=== PATIENT | male | born 1965 | race Caucasian/White ===

== ENCOUNTER 2020-06-01 11:34 | Outpatient (REF) | payer MEDICAID, SELFPAY | END 2020-06-01 11:35 | disposition home or self-care (01) | LOC: HO.HAP 11:34 | PROVIDERS: Visit Provider Internal Medicine | DX: Z46.1 Encounter for fitting and adjustment of hearing aid (principal) | CPT/HCPCS: V5014 ==

== ENCOUNTER 2020-06-15 13:56 | Outpatient (REF) | payer MEDICAID, SELFPAY | END 2020-06-15 13:57 | disposition home or self-care (01) | LOC: HO.HAP 13:56 | PROVIDERS: Visit Provider Internal Medicine | DX: Z46.1 Encounter for fitting and adjustment of hearing aid (principal); H90.3 Sensorineural hearing loss, bilateral | CPT/HCPCS: V5011; V5020; V5221; V5240; V5266 ==

== ENCOUNTER 2020-06-22 11:24 | Outpatient (REF) | payer MEDICAID, SELFPAY | END 2020-06-22 11:25 | disposition home or self-care (01) | LOC: HO.HAP 11:24 | PROVIDERS: PCP Internal Medicine; Referring Provider Internal Medicine; Visit Provider Internal Medicine | DX: Z46.1 Encounter for fitting and adjustment of hearing aid (principal) | CPT/HCPCS: V5275 ==

== ENCOUNTER 2020-07-05 15:23 | Outpatient (REF) | payer MEDICAID, SELFPAY | END 2020-07-05 15:24 | disposition home or self-care (01) | LOC: HO.HAP 15:23 | PROVIDERS: PCP Internal Medicine; Visit Provider Internal Medicine | DX: Z46.1 Encounter for fitting and adjustment of hearing aid (principal) | CPT/HCPCS: 92700; V5264 ==

== ENCOUNTER 2020-12-28 15:40 | Outpatient (REF) | payer OTHER, SELFPAY | END 2020-12-28 15:41 | disposition home or self-care (01) | LOC: HO.HAP 15:40 | PROVIDERS: Visit Provider Internal Medicine | DX: Z13.89 Encounter for screening for other disorder (principal) ==

== ENCOUNTER 2021-01-10 08:10 | Outpatient (REF) | payer SELFPAY ==
--- NOTE | 2021-01-10 08:43 | MHC.AU.HFU ---
Hearing Instrument Follow-Up- Binaural Date of Visit: 01/10/21 Right Ear: Dry Talc Racker: Octavio Model: Kevin 1600 JAYLON 312 Serial Number: [id number] Repair Warranty: 09/05/2023 Battery Size: 312 Color: Bronze Tube Winder Hand: Absolute Power Tube Winder Hand/Integrated earmold SN: [id number] Warranty: 07/28/2022 Type of Wax Guard: HearClear Dispensed By: [facility] Date of Fittin06/15/20 Left Ear: Dry Talc Racker: Octavio Model: CROS JAYLON 312 Serial Number: [id number] Repair Warranty: 09/05/2023 Battery Size: 312 Color: Bronze Tube Winder Hand: Size 2 60 gain Type of Dome: 8mm open (Oticon dome) Type of Wax Guard: Hear Clear Dispensed By: [facility] Date of Fittin06/15/20 Follow-Up Summary: Patient arrived to tow picker his repaired Kevin/CROS instruments. He returned the demo instruments and demo boiler blower in good condition. The absolute power custom gear nicker was placed back on his Kevin. Patient reports the instruments sound good. Recommendations: Hearing instrument follow-up or maintenance as needed. Please contact our clinic with any questions or concerns. Patient also purchased one pack of wax guards and a package of 10 domes. Diagnosis Code(s): Primary Diagnosis: H90.3 Bilateral Sensorineural Hearing Loss Signature: Provider: Fiona Pelaez, [facility]
== END 2021-01-10 08:11 | disposition home or self-care (01) ==
LOC: HO.HAP 08:10
PROVIDERS: Visit Provider Internal Medicine
DX: H90.3 Sensorineural hearing loss, bilateral (principal); Z46.1 Encounter for fitting and adjustment of hearing aid
CPT/HCPCS: V5267

== ENCOUNTER 2021-01-31 08:25 | Outpatient (REF) | payer SELFPAY | END 2021-01-31 08:26 | disposition home or self-care (01) | LOC: HO.HAP 08:25 | PROVIDERS: Visit Provider Internal Medicine | DX: Z13.89 Encounter for screening for other disorder (principal) ==

== ENCOUNTER 2021-02-06 11:47 | Outpatient (REF) | payer SELFPAY | END 2021-02-06 11:48 | disposition home or self-care (01) | LOC: HO.HAP 11:47 | PROVIDERS: Visit Provider Internal Medicine | DX: Z13.89 Encounter for screening for other disorder (principal) ==

== ENCOUNTER 2021-02-22 11:16 | Outpatient (REF) | payer SELFPAY | END 2021-02-22 11:17 | disposition home or self-care (01) | LOC: HO.HAP 11:16 | PROVIDERS: Visit Provider Internal Medicine | DX: Z13.89 Encounter for screening for other disorder (principal) ==

== ENCOUNTER 2021-05-29 16:15 | Outpatient (REF) | payer SELFPAY | END 2021-05-29 16:16 | disposition home or self-care (01) | LOC: HO.HAP 16:15 | PROVIDERS: Visit Provider Internal Medicine | DX: Z46.1 Encounter for fitting and adjustment of hearing aid (principal); H90.3 Sensorineural hearing loss, bilateral | CPT/HCPCS: V5267 ==

== ENCOUNTER 2021-10-17 13:31 | Outpatient (REF) | payer SELFPAY | END 2021-10-17 13:32 | disposition home or self-care (01) | LOC: HO.HAP 13:31 | PROVIDERS: Visit Provider Internal Medicine | DX: Z46.1 Encounter for fitting and adjustment of hearing aid (principal); H90.3 Sensorineural hearing loss, bilateral | CPT/HCPCS: V5267 ==

== ENCOUNTER 2022-04-30 16:15 | Outpatient (REF) | payer SELFPAY | END 2022-04-30 16:16 | disposition home or self-care (01) | LOC: HO.HAP 16:15 | PROVIDERS: Visit Provider Internal Medicine | DX: Z46.1 Encounter for fitting and adjustment of hearing aid (principal); H90.3 Sensorineural hearing loss, bilateral | CPT/HCPCS: V5267 ==

== ENCOUNTER 2023-01-03 13:54 | Outpatient (REF) | payer OTHER, SELFPAY | END 2023-01-03 13:55 | disposition home or self-care (01) | LOC: HO.SH 13:54 | PROVIDERS: Visit Provider Internal Medicine | DX: Z01.118 Encounter for examination of ears and hearing with other abnormal findings (principal); H90.3 Sensorineural hearing loss, bilateral; H69.93 Unspecified Eustachian tube disorder, bilateral | CPT/HCPCS: 92557; 92567 ==

== ENCOUNTER 2023-01-03 15:17 | Outpatient (REF) | payer OTHER, SELFPAY | END 2023-01-03 15:18 | disposition home or self-care (01) | LOC: HO.HAP 15:17 | PROVIDERS: Visit Provider Internal Medicine | DX: Z46.1 Encounter for fitting and adjustment of hearing aid (principal) | CPT/HCPCS: V5020; V5267 ==

== ENCOUNTER 2023-10-29 09:56 | Outpatient (REF) | payer SELFPAY | END 2023-10-29 09:57 | disposition home or self-care (01) | LOC: HO.HAP 09:56 | PROVIDERS: Visit Provider Internal Medicine | DX: Z46.1 Encounter for fitting and adjustment of hearing aid (principal); H90.6 Mixed conductive and sensorineural hearing loss, bilateral | CPT/HCPCS: 92593 ==

== ENCOUNTER 2023-11-06 11:32 | Outpatient (REF) | payer SELFPAY | END 2023-11-06 11:33 | disposition home or self-care (01) | LOC: HO.HAP 11:32 | PROVIDERS: Visit Provider Internal Medicine | DX: Z13.89 Encounter for screening for other disorder (principal) ==

== ENCOUNTER 2024-04-09 09:04 | Outpatient (REF) | payer SELFPAY ==
--- NOTE | 2024-04-09 13:22 | MHC.AU.HA3 ---
Hearing Instrument Follow-Up- Binaural Date of Visit: 04/09/24 Right Ear: Make, Model, Color, Serial Number: Octavio Catalan JAYLON SN: [id number] Color: Bronze Post Partum Nurse Repair Warranty: 09/05/2023 Post Partum Nurse Loss and Damage Warranty: 09/05/2023 Battery Size: 312 Gum Remover/Slim Tube: Absolute Power Gum Remover/Integrated earmold SN: [id number] Warranty: 07/28/2022 Type of Wax Guard: HearClear Dispensed By: [facility] Date of Fittin06/15/2020 Left Ear: Make, Model, Color, Serial Number: Octavio OSBORNE JAYLON SN: [id number] Color: Bronze Post Partum Nurse Repair Warranty: 09/05/2023 Post Partum Nurse Loss and Damage Warranty: 09/05/2023 Battery Size: 312 Gum Remover/Slim Tube: 2/60 CROS Earmold/Dome/CShell/SlimTip: Oticon 8mm Open Dome Type of Wax Guard: Hear Clear Dispensed By: [facility] Date of Fittin06/15/2020 Follow-Up Summary: Right hearing aid, flight attendant, and ear mold eaten by dog and damaged. Discussed options of repairing vs replacing (no longer has Medicaid insurance). Quoted $515.00 for hearing aid repair plus new ear mold. Edson opted to repair current hearing aid for now. Left CROS device and case in Repair Drawer until right hearing aid returns. Programmed loaner, Phonak Audeo P-13T Trial with 2P flight attendant and medium power dome (no CROS device). Ran feedback analyzer. Sent right hearing aid and ear mold to Octavio. Will need to ensure hearing aid is reconnected to CROS upon arrival. Then Edson can picker tender helper both devices and return loaner (no appointment needed). $515.00 due at picker tender helper. Recommendations: Patient will be contacted when materials have arrived. Diagnosis Code(s): Primary Diagnosis: H90.6 Mixed Hearing Loss, Bilateral Signature: Provider: Caity Sousa, [facility]
== END 2024-04-09 09:05 | disposition home or self-care (01) ==
LOC: HO.HAP 09:04
PROVIDERS: Visit Provider Internal Medicine
DX: Z13.89 Encounter for screening for other disorder (principal)

== ENCOUNTER 2024-05-07 10:57 | Outpatient (REF) | payer SELFPAY ==
--- NOTE | 2024-05-07 12:21 | MHC.AU.HA3 ---
Hearing Instrument Follow-Up- Binaural Date of Visit: 05/07/24 Right Ear: Alfred, Model, Color, Serial Number: Octavio Brown 1600 JAYLON SN: [id number] Color: Bronze Steam Service Inspector Repair Warranty: 10/28/2024 Steam Service Inspector Loss and Damage Warranty: 09/05/2023 [facility] Service Plan: None Battery Size: 312 Health And Safety Director/Slim Tube: Absolute Power Health And Safety Director/Integrated earmold SN: [id number] Warranty: 07/28/2022 Earmold/Dome/CShell/SlimTip: Type of Wax Guard: HearClear Dispensed By: [facility] Date of Fittin06/15/2020 Left Ear: Alfred, Model, Color, Serial Number: Octavio OSBORNE [facility] SN: [id number] Color: Bronze Steam Service Inspector Repair Warranty: 09/05/2023 Steam Service Inspector Loss and Damage Warranty: 09/05/2023 [facility] Service Plan: NONE Battery Size: 312 Health And Safety Director/Slim Tube: 2/60 CROS Earmold/Dome/CShell/SlimTip: Oticon 8mm Open Dome Type of Wax Guard: Hear Clear Dispensed By: [facility] Date of Fittin06/15/2020 Follow-Up Summary: Edson is here to warp picker repaired aid and new earmold. Returned loaner. Checked connection with phone. Provider could hear some feedback. Ran feedback assistant branch operations manager. Good subjective comfort and benefit reported. Recommendations: Recommendations: Hearing instrument follow-up or maintenance as needed. Diagnosis Code(s): Primary Diagnosis: H90.3 Bilateral Sensorineural Hearing Loss Signature: Provider: Caity Simpson, [facility]
== END 2024-05-07 10:58 | disposition home or self-care (01) ==
LOC: HO.HAP 10:57
PROVIDERS: Visit Provider Internal Medicine
DX: Z46.1 Encounter for fitting and adjustment of hearing aid (principal); H90.3 Sensorineural hearing loss, bilateral
CPT/HCPCS: 92700; V5014; V5264; V5266

== ENCOUNTER 2024-08-02 13:59 | Outpatient (REF) | payer SELFPAY ==
--- NOTE | 2024-08-02 16:06 | MHC.AU.HA3 ---
Hearing Instrument Follow-Up- Binaural Date of Visit: 08/02/24 Right Ear: Alfred, Model, Color, Serial Number: Octavio Brown 1600 JAYLON SN: [id number] Color: Bronze Cullet Trucker Repair Warranty: 10/28/2024 Cullet Trucker Loss and Damage Warranty: 09/05/2023 [facility] Service Plan: None Battery Size: 312 Electric Motor Control Assembler/Slim Tube: Absolute Power Electric Motor Control Assembler/Integrated earmold SN: [id number] Warranty: 07/28/2022 Earmold/Dome/CShell/SlimTip: Type of Wax Guard: HearClear Dispensed By: [facility] Date of Fittin06/15/2020 Left Ear: Alfred, Model, Color, Serial Number: Octavio OSBORNE JAYLON SN: [id number] Color: Bronze Cullet Trucker Repair Warranty: 09/05/2023 Cullet Trucker Loss and Damage Warranty: 09/05/2023 [facility] Service Plan: NONE Battery Size: 312 Electric Motor Control Assembler/Slim Tube: 2/60 CROS Earmold/Dome/CShell/SlimTip: Oticon 8mm Open Dome Type of Wax Guard: Hear Clear Dispensed By: [facility] Date of Fittin06/15/2020 Follow-Up Summary: Edson reports he has had problems with feedback since picking up the repaired hearing aid in April, he just hasn't been able to get in to deal with it. He reports trouble with feedback particularly when wearing his hardhat. Uses VC to turn aid down and this helps. Cleaned and checked aid and CROS, listening check positive. Ran feedback manager automotive. Further decreased gain for high pitches. Was not having a problem in office when simulating hard hat position with his hands. Will try and return if problem persists. Did not charge for today as this issue is ongoing since recent ESQUEDA repair. Recommendations: Recommendations: Hearing instrument follow-up or maintenance as needed. Patient will call if problems persist. Diagnosis Code(s): Primary Diagnosis: H90.6 Mixed Hearing Loss, Bilateral Signature: Provider: Caity Simpson, [facility]
== END 2024-08-02 14:00 | disposition home or self-care (01) ==
LOC: HO.HAP 13:59
PROVIDERS: Visit Provider Internal Medicine
DX: Z13.89 Encounter for screening for other disorder (principal)

== ENCOUNTER 2024-09-28 08:01 | Outpatient (REF) | payer SELFPAY ==
--- OUTSIDE RECORDS SUMMARY | 2024-09-28 08:04 | XMS_ITS | Data Portability ---
Author Organization [facility], , [facility] Address [address] [place] [address] Assessment No assessment recorded. Plan of Treatment Reminders Order Date Submit Date Provider Last Modified By Organization Details Last Modified Time Details Appointments None record ed. Lab None record ed. Referral None record ed. Procedures None record ed. Surgeries None record ed. Imaging None record ed. Medication Orders None record ed. Patient TargetsNo targets recorded. Patient InstructionsNo instructions recorded. Reason for Referral None Reported. Procedures Surgical History Date Name Laterality Status Provider Name and Address Organization Details Recorded Time 5 Jennifer - Colonoscopy completed Rogelio Rodriguez MD [address] [place] [address], [id number], [facility] 06/07/2015 09:15:28 Imaging Results None recorded. Procedure Notes None recorded. Medical Equipment None Reported. Medications Name Sig Start Date Stop Date Status Note LastModified by Organization Details LastModified Time ketoconazole 2 % crea active Not Available Not Available Not Available ciprofloxacin hcl 500 mg tabs active Not Available Not Available Not Available prochlorperazi ne maleate 10 mg tabs active Not Available Not Available Not Available metronidazole 500 mg tabs active Not Available Not Available Not Available fluconazole 150 mg tabs active Not Available Not Available Not Available lovastatin 20 mg tabs active Not Available Not Available Not Available azithromycin 250 mg tabs active Not Available Not Available Not Available lisinopril 10 mg tabs active Not Available Not Available Not Available azithromycin 250 mg tablet take 2 tablets by mouth on day 1 then 1 tablet on days 2 through 5 active Not Available Not Available No t Available fluconazole 150 mg tablet take 1 tablet by mouth TODAY--RE PEAT 1 TAB IN 1 WEEK IF NEEDED active Not Available Not Available No t Available metronidazole 500 mg tablet take 1 tablet by mouth three times a day active Not Available Not Available No t Available prochlorperazi ne maleate 10 mg tablet TAKE 1 TABLET BY MOUTH EVERY 6 HOURS NEEDED active Not Available Not Available No t Available ciprofloxacin 500 mg tablet TAKE 1 TABLET BY MOUTH TWICE DAILY active Not Available Not Available No t Available ketoconazole 2 % topical cream apply to affected area DAILY FOR 2 WEEKS DIRETED active Not Available Not Available No t Available Vitals None Recorded Social History None recorded. Functional Status None recorded. Mental Status None recorded. Family History Nothing Reported. Medical History No medical history recorded. Past Encounters Encounter ID Performer Location Encounter Start Date Encounter Closed Date Diagnosis/Indication Diagnosis SNOMED-CT Code Diagnosis ICD10 Code Diagnosis Note [id number] [facility], [address] [address] 06/07/2015 08:17:52 06/07/2015 12:28:40 Health Concerns Section Related Observation LastModified by Organization Detai ls LastModified Time None Recorded Concern Status LastModified by Organization Details LastModified Time None Recorded Advance Directives Directive None Recorded Payers Encounter Date Sequence Insurance Name Policy Number Policy Perdomo Covered Member ID Perdomo Member ID Guarantor Name 06/07/2015 1 [facility] [id number] Edson Bailey [id number] Edson Bailey
--- OUTSIDE RECORDS SUMMARY | 2024-09-28 08:05 | XMS_ITS | Data Portability ---
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) MDM MODERATE MUST MEET 2 OUT OF 3 ELEMENTS: PROBLEMS, DATA OR RISK ELEMENT 1: PROBLEMS ADDRESSED 1 OR MORE CHRONIC ILLNESS WITH EXACERBATION OR 2 OR MORE STABLE CHRONIC ILLNESSES OR 1 UNDIAGNOSED NEW PROBLEM OR 1 ACUTE ILLNESS W/SYMPTOMS OR 1 ACUTE COMPLICATED INJURY ELEMENT 2: DATA MUST MEET 1 OF 3 CATEGORIES CATEGORY 1: REVIEW OF PRIOR EXTERNAL NOTES, REVIEW OF RESULTS, ORDERING OF EACH TEST, ASSESSMENT REQUIRING INDEPENDENT HISTORIAN OR CATEGORY 2: INDEPENDENT INTERPRETATION OF TESTS BY ANOTHER PHYSICIAN OR SPECIALIST OR CATEGORY 3: DISCUSSION OF MGT OR TEST INTERPRETATION W/EXTERNAL PHYSICIAN OR SPECIALIST ELEMENT 3: RISK RISK OF COMPLICATIONS AND/OR MORBIDITY OR MORTALITY OF PATIENT MANAGEMENT PROVIDER MUST THOROUGHLY DOCUMENT EACH ELEMENT THAT IS COVERED Not available 01/08/2021 15:46:22 12/25/2021 12/25/2021 [id number] [place] [id number] (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) MDM MODERATE MUST MEET 2 OUT OF 3 ELEMENTS: PROBLEMS, DATA OR RISK ELEMENT 1: PROBLEMS ADDRESSED 1 OR MORE CHRONIC ILLNESS WITH EXACERBATION OR 2 OR MORE STABLE CHRONIC ILLNESSES OR 1 UNDIAGNOSED NEW PROBLEM OR 1 ACUTE ILLNESS W/SYMPTOMS OR 1 ACUTE COMPLICATED INJURY ELEMENT 2: DATA MUST MEET 1 OF 3 CATEGORIES CATEGORY 1: REVIEW OF PRIOR EXTERNAL NOTES, REVIEW OF RESULTS, ORDERING OF EACH TEST, ASSESSMENT REQUIRING INDEPENDENT HISTORIAN OR CATEGORY 2: INDEPENDENT INTERPRETATION OF TESTS BY ANOTHER PHYSICIAN OR SPECIALIST OR CATEGORY 3: DISCUSSION OF MGT OR TEST INTERPRETATION W/EXTERNAL PHYSICIAN OR SPECIALIST ELEMENT 3: RISK RISK OF COMPLICATIONS AND/OR MORBIDITY OR MORTALITY OF PATIENT MANAGEMENT PROVIDER MUST THOROUGHLY DOCUMENT EACH ELEMENT THAT IS COVERED Not available 12/25/2021 16:10:17 Plan of Treatment Reminders Order Date Submit Date Provider Last Modified By Organization Details Last Modified Time Details Appointments None recorded. Lab None recorded. Referral general surgeon referral 2021 [email or web address] Tami Lewis MD, [address], [place], [address], 09:31:17 Procedures None recorded. Surgeries None recorded. Imaging None recorded. Medication Orders lisinopril 20 mg tablet 2020 [id number], [address], [place], [id number], 15:51:55 atorvastati n 40 mg tablet 2020 [facility] #[id number], [address], [place], [id number], 15:51:56 amoxicillin 875 mg-potassiu m clavulanate 125 mg tablet 2021 022 [facility], [address] [place] [address], [address], 3 12:09:05 lisinopril 20 mg tablet 2021 022 [facility], [address] [place] [address], [address], 3 11:04:53 atorvastati n 40 mg tablet 2021 022 [facility], [address] [place] [address], [address], 2 11:19:47 cyclobenzap rine 10 mg tablet 2022 024 [facility], [address] [place] [address], [address], 4 10:13:42 phentermine 15 mg capsule 2022 023 [facility], [address] [place] [address], [address], 4 08:40:01 nabumetone 500 mg tablet 2023 024 LOW [facility], [address] [place] [address], [address], 4 11:03:53 Patient TargetsNo targets recorded. Patient Instructions Encounter Date Encounter Id Patient Instructions Last Modified By Organization Details Last Modified Time 01/08/2021 [id number] Home Sleep Apnea Testing* [email or web address] Not available 01/30/2021 14:47:48 shoulder pain: care instructions Not available 01/08/2021 15:49:46 03/12/2024 [id number] sciatica: exercises [email or web address] Not available 03/12/2024 10:28:11 low back pain: exercises [email or web address] Not available 03/12/2024 10:28:50 Reason for Referral General Surgeon Referral for Umbilical hernia worsening periumbilical pain Referring Physician: Anrold Savage, Internal Medicine, Encounter Date: 12/25/2021 Results Created Date Observation Date Name Description Value Unit Range Abnormal Flag Note LastModifiedBy Organization Detail LastModifiedTime 05/30/2005/20/2021 Home Sleep Apnea Testi ng* No observ ation record ed. [email or web address] [address], [address], 12/25/2021 16:02:59 Result Notes None recorded. Problems Name Problem SNOMED Code Status Onset Date Resolution Date Notes Provider Name and Address Organization Details Recorded Time Essential hypertens ion 20862380 Active 2017 Not Available [facility] 12:48:32 Hyperchol esterolem ia 49672483 Active 2017 Not Available [facility] 12:48:32 Sleep apnea 44358452 Active 2018 Not Available [facility] 12:48:32 Umbilical hernia 535984369 Active 2021 Arnold Savage, DO [address] [place], [address], [facility] 2 16:10:02 Acute otitis media 7836594 Active 2021 WILLY RINALDI [address] [place], [address], [facility] 2 11:07:39 Bilateral hip joint pain 996888700949 89819 Active 2022 WILLY RINALDI [address] [place], [address], [facility] 3 10:48:26 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 WILLY RINALDI [address] [place] [address], [address], [facility] 3 12:08:31 Strain of flexor muscle of right hip 960098059537 09192 Active 2022 Arnold Savage DO [address] [place] [address], [address], [facility] 3 16:48:25 Neck pain 35938929 Active 2022 WILLY RINALDI [address] [place] [address], [address], [facility] 3 08:24:42 Acute bronchiti s 29272981 Active 2023 WILLY RINALDI [address] [place] [address], [address], [facility] 4 10:30:00 Pain of left shoulder joint 889689628502 39396 Active 2023 WILLY RINALDI [address] [place] [address], [address], [facility] 4 10:24:40 Strain of left trapezius muscle 101226185961 15482 Active 2023 WILLY RINALDI [address] [place] [address], [address], [facility] 4 10:25:31 Lumbago with sciatica 354147933 Active 2023 WILLY RINALDI [address] [place], [address], [facility] 4 10:27:28 Problem Notes None recorded. Procedures Surgical History Date Name Laterality Status Provider Name and Address Organization Details Recorded Time 08/25/19 procedure on ear completed Desiree Haro NP, [address] [place] [address], [address], [facility] 10/13/2018 14:22:06 08/25/19 00 procedure on elbow completed Desiree Haro NP, [address] [place] [address], [address], [facility] 10/13/2018 14:20:56 08/25/18 91 Knee Surgery completed Desiree Haro NP, [address] [place] [address], [address], [facility] 10/13/2018 14:20:11 Imaging Results Imaging Date Name Status LastModified by Organiz ation Details LastModified Time 05/20/2021 Home Sleep Apnea Testing* completed [email or web address] [facility] [address], [address], 12/25/2021 16:02:59 Procedure Notes None recorded. Medical Equipment None Reported. Allergies Allergen ID Allergen Name Allergen Category Reaction Reaction Severity Criticality Documentation Date Start Date Code Code System Note Provider Name and Address Organization Details Recorded Time 2244 Toradol medicatio n dizziness Not available Not available 05/01/2018 75492 [facility] 8 09:23:22 Medications Name Sig Start Date Stop Date Status Note LastModified by Organization Details LastModified Time cyclobenzapr ine 10 mg tablet Take 1 tablet 3 times a day by oral route as needed for 7 days. active Not Available Not Available No t Available atorvastatin 40 mg tablet TAKE ONE TABLET BY MOUTH ONCE DAILY needs appt for further refills. call office 2023 active Not Available Not Available Not Avai lable prednisone 10 mg tablet 40 mg x 2 days30 mg x 2 days20 mg x 2 days10 mg x 2 days 03/12 completed Not Available Not Available Not Available meloxicam 15 mg tablet Take 1 tablet every day by oral route with meals for 30 days. 07/27 completed Not Available Not Available Not Available lisinopril 20 mg tablet TAKE ONE TABLET BY MOUTH ONCE DAILY needs appt for further refills. call office 2023 active Not Available Not Available Not Avai lable phentermine 15 mg capsule TAKE ONE CAPSULE BY MOUTH ONCE DAILY 2024 active Not Available Not Available Not Avai lable tramadol 50 mg tablet 10/14 completed Not Available Not Available Not Available amoxicillin 875 mg tablet Take 1 tablet every 12 hours by oral route for 7 days. 03/12 completed Not Available Not Available Not Available baclofen 10 mg tablet 07/30 completed Not Available Not Available Not Available lisinopril 40 mg tablet TK 1 T PO QD 12/19 completed Not Available Not Available Not Available amoxicillin 875 mg-potassium clavulanate 125 mg tablet Take 1 tablet every 12 hours by oral route for 7 days. 07/27 completed Not Available Not Available Not Available nabumetone 500 mg tablet TAKE ONE TABLET BY MOUTH TWO TIMES A DAY NEEDED active Not Available Not Available No t Available oxycodone 5 mg tablet 07/27 completed Not Available Not Available Not Available Vitals Date Recorded Body height Body mass index (BMI) Body weight Heart rate Oxygen saturation Oxygen saturation in Arterial blood by Pulse oximetry Systolic blood pressure Diastolic blood pressure Provider Name and Address Organization Details Last Updated DateTime 1 177.8 cm 33.7 kg/m2 657584. 21 g 64 /min 97 % 97 % 130 mm[Hg] 80 mm[Hg] [facility] 1 15:30:28 Date Recorded Body height Body mass index (BMI) Body weight Heart rate Oxygen saturation Oxygen saturation in Arterial blood by Pulse oximetry Systolic blood pressure Diastolic blood pressure Provider Name and Address Organization Details Last Updated DateTime 2 177.8 cm 33.7 kg/m2 074148. 21 g 78 /min 98 % 98 % 132 mm[Hg] 84 mm[Hg] Arnold Savage, DO [address] [place], [address], [facility] 2 15:54:41 Date Recorded Body height Oxygen saturation Oxygen saturation in Arterial blood by Pulse oximetry Heart rate Systolic blood pressure Diastolic blood pressure Provider Name and Address Organization Details Last Updated DateTime 2 177.8 cm 100 % 100 % 65 /min 170 mm[Hg] 72 mm[Hg] Nahomi Hussein [facility] 2 10:59:34 Date Recorded Body weight Heart rate Oxygen saturation Oxygen saturation in Arterial blood by Pulse oximetry Systolic blood pressure Diastolic blood pressure Provider Name and Address Organization Details Last Updated DateTime 3 831002. 43 g 78 /min 98 % 98 % 155 mm[Hg] 83 mm[Hg] Julia Montgomery [facility] 3 09:06:46 Date Recorded Body height Body mass index (BMI) Body weight Heart rate Oxygen saturation Oxygen saturation in Arterial blood by Pulse oximetry Systolic blood pressure Diastolic blood pressure Provider Name and Address Organization Details Last Updated DateTime 4 177.8 cm 31.3 kg/m2 27098.1 4 g 66 /min 98 % 98 % 136 mm[Hg] 82 mm[Hg] Evelio Andrade [facility] 4 10:14:40 Social History Question Answer Notes LastModified by Organizat ion Details LastModified Time Tobacco Smoking Status Never Smoker Janie oh [facility] 05/01/2018 11:05:49 What Was The Date Of Your Most Recent Tobacco Screening? 03/12/2024 [email or web address] Information not available 03/12/2024 Sex: Unknown Functional Status None recorded. Mental Status None recorded. Family History Relationship Description Onset Age of this Age Resolved Age Notes LastModified by Organization Details LastModified Time Father Sleep apnea [email or web address] Not availa ble 10/13/2018 14:23:14 Medical History No medical history recorded. Immunizations Vaccine Type Date Status Note Provider Nam e and Address Organization Details Recorded Time Influenza, split virus, quadrivalent, preservative 1 completed Janie oh [place] [facility] 05/25/2021 08:21:12 COVID-19, mRNA, LNP-S, PF, 100 mcg/0.5mL dose or 50 mcg/0.25mL dose 1 completed Arnold Savage DO [address] [place] [address], [address], [facility] 08/11/2021 14:04:41 Influenza, split virus, quadrivalent, preservative 9 completed Janie oh [facility] 10/13/2018 16:13:39 SARS-COV-2 (COVID-19) vaccine, UNSPECIFIED 1 completed Janie oh [facility] 01/02/2021 14:40:30 Past Encounters Encounter ID Performer Location Encounter Start Date Encounter Closed Date Diagnosis/Indication Diagnosis SNOMED-CT Code Diagnosis ICD10 Code Diagnosis Note [id number] Desiree Haro NP, [facility] [address] [place] [address], [place] [address] 05/01/2018 10:58:44 05/01/2018 14:36:39 Dizziness 066819462 R42 On examina tion - pupils unequal 567407533 H57.02 [id number] Desiree Haro NP, [address],[place] [address] 05/22/2018 11:05:21 05/22/2018 14:48:17 Hypercholesterolemia 19029928 E78.00 Essential hypertension 52134382 I10 Diarrhea 97321802 R19.7 Hearing loss 45839014 H9 1.92 [id number] Desiree Haro NP, [facility] [address] [place] [address], [place] [address] 10/13/2018 16:03:57 10/13/2018 16:39:53 Essential hypertension 47851203 I10 Sleep apnea 90869717 G47 .30 compliant 80 % time Hypercholesterolemia 136 96435 E78.00 Screening procedure 2012 5006 Z13.9 [id number] Arnold Savage DO [facility] [address] [facility],[place] [address] 01/03/2020 14:13:01 01/03/2020 14:55:30 Essential hypertension 69030988 I10 bp is stbale and tolerates all meds Hypercholesterolemia 136 17075 E78.00 will have him get lab as it hasnt in aq while\ Sleep apnea 25727346 G47 .30 MUst get new machine as his is >15 yrs old and is no longer viable to treat his CAROL [id number] Arnold Savage DO [facility] [address] [facility],[place] [address] 01/08/2021 15:22:58 01/08/2021 16:29:27 Hypercholesterolemia 61214842 E78.00 will have him get lab as it hasnt in aq while\ Essential hypertension 45617658 I10 bp is stable and tolerates all meds Sleep apnea 09309328 G47 .30 MUst get new machine as his is >15 yrs old and is no longer viable to treat his CAROL we will order a new home sleep study Shoulder pain 87877843 M 25.519 [id number] Arnold Savage DO [facility] [address] [facility],[place] [address] 12/25/2021 15:16:28 12/26/2021 09:31:16 Active or passive immunization 674152759 Z23 will consider getting Tdap Umbilical hernia 1415350 07 K42.9 [id number] WILLY RINALDI [facility] [address] [facility],[place] [address] 06/11/2022 10:55:32 06/11/2022 11:22:17 Acute otitis media 4441925 H65.01 will start on PO abx for the patient Hypercholesterolemia 136 96317 E78.2 will f/u with 90 day supply at new pharmacy Essential hypertension 83466227 I10 will f/u with 90 day supply at new pharmacy [id number] WILLY RINALDI [facility] [address] [facility] [address] 07/30/2023 08:59:58 07/30/2023 10:33:51 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.3 will start on 1.5 mg PRN for the msk spasmswith tramadol Body mass index 30+ - obesity 880335775 Z68.33 will trial a course of phentermin e for continued weight loss [id number] WILLY RINALDI [facility] [address] [facility],[place] [address] 03/12/2024 10:03:18 03/12/2024 12:09:16 Depression screening 129352270 Z13.31 negative Pain of le ft shoulder joint 6205384061 2966715 M25.512 stable Strain of left trapezius muscle 8435237111 0779468 S29.012A will start nabumetone 500 mg BID PRN Lumbago with sciatica 20 2749858 M54.41 will set up with other exercises for the patient Health Concerns Section Related Observation LastModified by Organization Detai ls LastModified Time None Recorded Concern Status LastModified by Organization Details LastModified Time None Recorded Advance Directives Directive None Recorded Payers Encounter Date Sequence Insurance Name Policy Number Policy Perdomo Covered Member ID Perdomo Member ID Guarantor Name 01/08/2021 1 [facility] [id number] Edson Bailey [id number] Edson Bailey 12/25/[address] [place] [address] [id number] Edson Bailey [id number] Edson Bailey 06/11/2022 1 [facility] Edson Bailey [id number] Edson Bailey 07/30/[address] [place] [address] [id number] Edson Bailey [id number] Edson Bailey 03/12/[address] [place] [address] [id number] Edson Bailey [id number] Edson Bailey Notes Date Note Type Note Provider Name a sc Address Organization Details Recorded Time 1 text/html here for familiak and is doing ok and is much less stressed states that he is going to gym too states he is going up to 5 times a week eating better overall Arnold Savage DO [address] [facility], [place], [address], [facility] 01/08/2021 15:54:09 2 text/html here for rechk and is doing ok overall exvcept for a lump in his chadwick button present for about a yearstates it does hurt at times when pressing on itpain is sharp and hurts for over a day Arnold Savage DO [address] [place], [address], [facility] 12/25/2021 16:14:52 2 text/html c/o right ear pain the patient developed acute onset right sided ear painhas hearing aids currently purulent discharge, redness, bulging and swelling for the right ear canal and right ear drum will start on abx POhas hernia surgery on will start on today, stop tart after hernia surgery WILLY RINALDI [address] [place], [address], [facility] 06/11/2022 11:17:10 3 text/html c/o neck spasms the patient originally called Friday through the on-call servicethe patient reports that he develops cervical spine spasms and tightness in the left side and then moved to the middle of the neckpain is improving with 1.5 tabs of the msk relaxer did show improvementROM is better today is in office the patient reports that he'll need another course of the MSK relaxerwill send it instill needs to hop picker the tramadol for an increase of pain may need additional imaging and work up if it doesn't can't do MRIif imaging needed will do CT instead WILLY RINALDI [address] [place], [address], [facility] 07/30/2023 09:22:50 4 text/html c/o upper back/shoulder pain the patient reports that he probably sprained his back after lifting a cooler into his truckpain is right up in the left shoulder blade, worse with or carrying weight over lifting 10 poundspain feels like an acheat worse it is 8/10at baseline it is 0/10 worse at night or when he is lifting his granddaughterno numbness and tinglingno obvious weakness or neuro deficits WILLY RINALDI [address] [place] [address], [place], [address], [facility] 03/12/2024 10:31:25
== END 2024-09-28 08:02 | disposition home or self-care (01) ==
LOC: HO.HAP 08:01
PROVIDERS: Visit Provider Internal Medicine
DX: Z13.89 Encounter for screening for other disorder (principal)

== ENCOUNTER 2024-10-06 09:59 | Outpatient (REF) | payer SELFPAY ==
--- OUTSIDE RECORDS SUMMARY | 2024-10-06 11:43 | XMS_ITS | Data Portability ---
Author Organization [facility] Ale[facility] Internal [facility], Home Service Address [address] [place] [address] Assessment Encounter Date Assessment Date Assessment LastModified by Organization Details LastModified Time 01/08/2021 01/08/2021 [id number] [place] [id number] (RIG HAND) MDM MODERATE MUST MEET 2 OUT OF [...] COVERED Not available 01/08/2021 15:46:22 12/25/2021 12/25/20[place] [id number] [place] [address] (RIG HAND) MDM MODERATE MUST MEET 2 OUT OF [...] None recorded. Referral general surgeon referral 2021 [email or web address] Tami Lewis MD, [address], [place], [address], 09:31:17 Procedures None recorded. Surgeries None recorded. Imaging None recorded. Medication Orders lisinopril 20 mg tablet 2020 [id number], [address], [place], [id number], 15:51:55 atorvastati n 40 mg tablet 2020 [facility][id number], [address], [place], [id number], 15:51:56 amoxicillin 875 mg-potassiu m clavulanate 125 mg tablet 2021 022 [facility], [address] [place] [address], [address], 3 12:09:05 lisinopril 20 mg tablet [address] [facility], [address] [place] [address], [address], 3 11:04:53 atorvastati n 40 mg tablet [address] [facility], [address] [place] [address], [address], 2 11:19:47 cyclobenzap rine 10 mg tablet [address] [facility], [address] [place] [address], [address], 4 10:13:42 phentermine 15 mg capsule 2022 023 [facility], [address] [place] [address], [address], 4 08:40:01 nabumetone 500 mg tablet 2023 024 LOW [facility], [address] [place] [address], [address], 4 11:03:53 Patient TargetsNo targets recorded. Patient Instructions Encounter Date Encounter Id Patient Instructions Last Modified By Organization Details Last Modified Time 01/08/2021 [id number] Home Sleep Apnea Testing* [email or web address] Not available 01/30/2021 14:47:48 shoulder pain: care instructions Not available 01/08/2021 15:49:46 03/12/2024 [id number] sciatica: exercises [email or web address] Not available 03/12/2024 10:28:11 low back pain: exercises [email or web address] Not available 03/12/2024 10:28:50 Reason for Referral General Surgeon Referral for Umbilical hernia worsening periumbilical pain Referring Physician: Arnold Savage, Internal Medicine, Encounter Date: 12/25/2021 Results Created Date Observation Date Name Description Value Unit Range Abnormal Flag Note LastModifiedBy Organization Detail LastModifiedTime 05/30/2005/20/2021 Home Sleep Apnea Testi ng* No observ ation record ed. [email or web address] [facility] [address], [address], 12/25/2021 16:02:59 Result Notes None recorded. Problems Name Problem SNOMED Code Status Onset Date Resolution Date Notes Provider Name and Address Organization Details Recorded Time Essential hypertens ion 32188369 Active 2017 Not Available [facility] 12:48:32 Hyperchol esterolem ia 08248778 Active 2017 Not Available [facility] 12:48:32 Sleep apnea 18804371 Active 2018 Not Available [facility] 12:48:32 Umbilical hernia 258591199 Active 2021 Arnold Savage, DO [address] [place], [address], [facility] 2 16:10:02 Acute otitis media 8960590 Active 2021 WILLY RINALDI [address] [place], [address], [facility] 2 11:07:39 Bilateral hip joint pain 524319170693 33259 Active 2022 WILLY RINALDI [address] [place], [address], [facility] 3 10:48:26 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 2022 WILLY RINALDI [address] [place] [address], [address], [facility] 3 12:08:31 Strain of flexor muscle of right hip 116475102880 99184 Active 2022 Arnold Savage DO [address] [place] [address], [address], [facility] 3 16:48:25 Neck pain 33499027 Active 2022 WILLY RINALDI [address] [place] [address], [address], [facility] 3 08:24:42 Acute bronchiti s 05868769 Active 2023 WILLY RINALDI [address] [place] [address], [address], [facility] 4 10:30:00 Pain of left shoulder joint 902568117143 20116 Active 2023 WILLY RINALDI [address] [place] [address], [address], [facility] 4 10:24:40 Strain of left trapezius muscle 956641400248 17906 Active 2023 WILLY RINALDI [address] [place] [address], [address], [facility] 4 10:25:31 Lumbago with sciatica 885295186 Active 2023 WILLY RINALDI [address] [place], [address], [facility] 4 10:27:28 Problem Notes None recorded. Procedures Surgical History Date Name Laterality Status Provider Name and Address Organization Details Recorded Time 08/25/19 procedure on ear completed Desiree Haro NP, [address] [place] [address], [address], [facility] Internal [facility] 10/13/2018 14:22:06 08/25/19 00 procedure on elbow completed Desiree Haro NP, S [address] [place] [address], [address], [facility] Internal [facility] 10/13/2018 14:20:56 08/25/18 91 Knee Surgery completed Desiree Haro NP, S [address] [place] [address], [address], [facility] Internal [facility] 10/13/2018 14:20:11 Imaging Results Imaging Date Name Status LastModified by Organiz ation Details LastModified Time 05/20/2021 Home Sleep Apnea Testing* completed [email or web address] [facility] [address], [address], 12/25/2021 16:02:59 Procedure Notes None recorded. Medical Equipment None Reported. Allergies Allergen ID Allergen Name Allergen Category Reaction Reaction Severity Criticality Documentation Date Start Date Code Code System Note Provider Name and Address Organization Details Recorded Time 2244 Toradol medicatio n dizziness Not available Not available 05/01/2018 43644 [facility] 8 09:23:22 Medications Name Sig Start Date [...] Updated DateTime 1 177.8 cm 33.7 kg/m2 311089. 21 g 64 /min 97 % 97 % 130 mm[Hg] 80 mm[Hg] [facility] 1 15:30:28 Date Recorded Body height Body mass index (BMI) Body weight Heart rate Oxygen saturation Oxygen saturation in Arterial blood by Pulse oximetry Systolic blood pressure Diastolic blood pressure Provider Name and Address Organization Details Last Updated DateTime 2 177.8 cm 33.7 kg/m2 393067. 21 g 78 /min 98 % 98 % 132 mm[Hg] 84 mm[Hg] Arnold Savage, DO [address] [place], [address], [facility] 2 15:54:41 Date Recorded Body height Oxygen saturation Oxygen saturation in Arterial blood by Pulse oximetry Heart rate Systolic blood pressure Diastolic blood pressure Provider Name and Address Organization Details Last Updated DateTime 2 177.8 cm 100 % 100 % 65 /min 170 mm[Hg] 72 mm[Hg] Nahomi Hussein [facility] 2 10:59:34 Date Recorded Body weight Heart rate Oxygen saturation Oxygen saturation in Arterial blood by Pulse oximetry Systolic blood pressure Diastolic blood pressure Provider Name and Address Organization Details Last Updated DateTime 3 388953. 43 g 78 /min 98 % 98 % 155 mm[Hg] 83 mm[Hg] Julia Montgomery [facility] 3 09:06:46 Date Recorded Body height Body mass index (BMI) Body weight Heart rate Oxygen saturation Oxygen saturation in Arterial blood by Pulse oximetry Systolic blood pressure Diastolic blood pressure Provider Name and Address Organization Details Last Updated DateTime 4 177.8 cm 31.3 kg/m2 83479.1 4 g 66 /min 98 % 98 % 136 mm[Hg] 82 mm[Hg] Evelio Andrade [facility] 4 10:14:40 Social History Question Answer Notes LastModified by Organizat ion Details LastModified Time Tobacco Smoking Status Never Smoker [facility] 05/01/2018 11:05:49 What Was The [...] mcg/0.25mL dose 1 completed Arnold Savage DO [address] [place] [address], [address], [facility] 08/11/2021 14:04:41 Influenza, split virus, quadrivalent, preservative 9 completed Janie oh [facility] 10/13/2018 16:13:39 SARS-COV-2 (COVID-19) vaccine, UNSPECIFIED 1 completed Janie oh [facility] 01/02/2021 14:40:30 Past Encounters Encounter ID Performer Location Encounter Start Date Encounter Closed Date Diagnosis/Indication Diagnosis SNOMED-CT Code Diagnosis ICD10 Code Diagnosis Note [id number] Desiree Haro NP, [facility] [address] [place] [address], [place] [address] 05/01/2018 10:58:44 05/01/2018 14:36:39 Dizziness 383929811 R42 On examina tion - pupils unequal 023999674 H57.02 [id number] Desiree Haro NP, [address],[place] [address] 05/22/2018 11:05:21 05/22/2018 14:48:17 Hypercholesterolemia 25648465 E78.00 Essential hypertension 44914923 I10 Diarrhea 09046794 R19.7 Hearing loss 94653351 H9 1.92 [id number] Desiree Haro NP, [facility] [address] [place] [address], [place] [address] 10/13/2018 16:03:57 10/13/2018 16:39:53 Essential hypertension 85528649 I10 Sleep apnea 82207690 G47 .30 compliant 80 % time Hypercholesterolemia 136 34822 E78.00 Screening procedure 2012 5006 Z13.9 [id number] Arnold Savage DO [facility] [address] [facility],[place] [address] 01/03/2020 14:13:01 01/03/2020 14:55:30 Essential hypertension 79858348 I10 bp is stbale and tolerates all meds Hypercholesterolemia 136 38051 E78.00 will have him get lab as it hasnt in aq while\ Sleep apnea 53469633 G47 .30 MUst get new machine as his is >15 yrs old and is no longer viable to treat his CAROL [id number] Arnold Savage DO [facility] [address] [facility],[place] [address] 01/08/2021 15:22:58 01/08/2021 16:29:27 Hypercholesterolemia 60720327 E78.00 will have him get lab as it hasnt in aq while\ Essential hypertension 38671045 I10 bp is stable and tolerates all meds Sleep apnea 08733981 G47 .30 MUst get new machine as his is >15 yrs old and is no longer viable to treat his CAROL we will order a new home sleep study Shoulder pain 19717031 M 25.519 [id number] Arnold Savage DO [facility] [address] [facility],[place] [address] 12/25/2021 15:16:28 12/26/2021 09:31:16 Active or passive immunization 911311037 Z23 will consider getting Tdap Umbilical hernia 6692819 07 K42.9 [id number] WILLY RINALDI [facility] [address] [facility],[place] [address] 06/11/2022 10:55:32 06/11/2022 11:22:17 Acute otitis media 4317006 H65.01 will start on PO abx for the patient Hypercholesterolemia 136 49586 E78.2 will f/u with 90 day supply at new pharmacy Essential hypertension 51670603 I10 will f/u with 90 day supply at new pharmacy [id number] WILLY RINALDI [facility] [address] [facility] [address],[place] [address] 07/30/2023 08:59:58 07/30/2023 10:33:51 Spasmodic torticollis 18256663 G24.3 will start on 1.5 mg PRN for the msk spasmswith tramadol Body mass index 30+ - obesity 103299747 Z68.33 will trial a course of phentermin e for continued weight loss [id number] WILLY RINALDI [facility] [address] [facility],[place] [address] 03/12/2024 10:03:18 03/12/2024 12:09:16 Depression screening 775899708 Z13.31 negative Pain of le ft shoulder joint 2568159223 6552333 M25.512 stable Strain of left trapezius muscle 7195955959 8245988 S29.012A will start nabumetone 500 mg BID PRN Lumbago with sciatica 20 7966547 M54.41 will set up with other exercises for the patient Health Concerns Section Related Observation LastModified by Organization Detai ls LastModified Time None Recorded Concern Status LastModified by Organization Details LastModified Time None Recorded Advance Directives Directive None Recorded Payers Encounter Date Sequence Insurance Name Policy Number Policy Perdomo Covered Member ID Perdomo Member ID Guarantor Name 01/08/[address] [facility] [id number] Edson Bailey [id number] Edson Bailey 12/25/[address] [place] [address] [id number] Edson Bailey [id number] Edson Bailey 06/11/2022 1 [facility] Edson Bailey [id number] Edson Bailey 07/30/[address] [place] [address] [id number] Edson Bailey [id number] Edson Bailey 03/12/[address] [place] [address] [id number] Edson Baliey [id number] Edson Bailey Notes Date Note Type Note Provider Name a ga Address Organization Details Recorded Time 1 text/html here for familiak and is doing ok and is much less stressed states that he is going to gym too states he is going up to 5 times a week eating better overall Arnold Savage DO [address] [facility], [place], [address], [facility] 01/08/2021 15:54:09 2 text/html here for rechk and is doing ok overall exvcept for a lump in his chadwick button present for about a yearstates it does hurt at times when pressing on itpain is sharp and hurts for over a day Arnold Savage DO [address] [place], [address], [facility] 12/25/2021 16:14:52 2 text/html c/o right ear pain the patient developed acute onset right sided ear painhas hearing aids currently purulent discharge, redness, bulging and swelling for the right ear canal and right ear drum will start on abx POhas hernia surgery on will start on today, stop tart after hernia surgery WILLY RINALDI [address] [place], [address], [facility] 06/11/2022 11:17:10 3 text/html c/o [...] MSK relaxerwill send it instill needs to cook pickled meat the tramadol for an increase of pain may need additional imaging and work up if it doesn't can't do MRIif imaging needed will do CT instead WILLY RINALDI [address] [place], [address], [facility] 07/30/2023 09:22:50 4 text/html c/o [...] obvious weakness or neuro deficits WILLY RINALDI [address] [place] [address], [place], [address], [facility] 03/12/2024 10:31:25
== END 2024-10-06 10:00 | disposition home or self-care (01) ==
LOC: HO.HAP 09:59
PROVIDERS: Visit Provider Internal Medicine
DX: Z13.89 Encounter for screening for other disorder (principal)

== ENCOUNTER 2024-12-17 10:43 | Outpatient (REF) | payer SELFPAY ==
--- OUTSIDE RECORDS SUMMARY | 2024-12-17 11:28 | XMS_ITS | Data Portability ---
Author Organization [facility], , [facility] Address [address] [place] [address] Assessment No assessment recorded. Plan of Treatment [...] Jennifer - Colonoscopy completed Rogelio Rodriguez MD [address] [place] [address], [address], [facility] 06/07/2015 09:15:28 Imaging Results None recorded. Procedure Notes None recorded. Medical Equipment None Reported. Medications Name Sig Start Date Stop Date Status Note LastModified by Organization Details LastModified Time ciprofloxacin hcl 500 mg tabs active Not Available Not Available Not Available lovastatin 20 mg tabs active Not Available Not Available Not Available metronidazole 500 mg tabs active Not Available Not Available Not Available azithromycin 250 mg tabs active Not Available Not Available Not Available fluconazole 150 mg tabs active Not Available Not Available Not Available ketoconazole 2 % crea active Not Available [...] SNOMED-CT Code Diagnosis ICD10 Code Diagnosis Note [id number] [facility], [address] [address] 06/07/2015 08:17:52 06/07/2015 12:28:40 Health Concerns Section Related Observation LastModified by Organization Detai ls LastModified Time None Recorded Concern Status LastModified by Organization Details LastModified Time None Recorded Advance Directives Directive None Recorded Payers Encounter Date Sequence Insurance Name Policy Number Policy Perdomo Covered Member ID Perdomo Member ID Guarantor Name 06/07/2015 1 [facility] [id number] Edson Bailey [id number] Edson Bailey
--- NOTE | 2024-12-17 13:18 | MHC.AU.CE1 ---
Cerumen Removal- Right Ear Date of Visit: 12/17/24 Medical Conditions: Sudden Hearing Loss (LEFT) Ear Surgery (LEFT) Medications: No Medications of Concern for Cerumen Removal Procedure: Right Ear: Prior to Removal: Moderate Cerumen Present Outcome of Procedure: Cerumen was easily removed Most cerumen was removed. Tympanic membrane is now visible. Other: New impression needed for earmold remake. Found non occluding cerumen, not deep in canal, but would interfere with taking good impression. Removed easily without incidence with lighted curette. Small amount of cerumen adhered to canal wall left behind. Diagnosis Code(s): Primary Diagnosis: H90.3 Bilateral Sensorineural Hearing Loss Signature: Provider: Caity Simpson, [facility]
--- NOTE | 2024-12-17 13:27 | MHC.AU.HA3 ---
Hearing Instrument Follow-Up- Binaural Date of Visit: 12/17/24 Right Ear: Alfred, Model, Color, Serial Number: Octavio Brown 1600 JAYLON SN: [id number] Color: Bronze Jalousies Installer Repair Warranty: 10/28/2024 Jalousies Installer Loss and Damage Warranty: 09/05/2023 [facility] Service Plan: None Battery Size: 312 Balling Head Tender/Slim Tube: Absolute Power Balling Head Tender/Integrated earmold SN: [id number] Warranty: 10/29/2026 Earmold/Dome/CShell/SlimTip: Type of Wax Guard: HearClear Dispensed By: [facility] Date of Fittin06/15/2020 Left Ear: Make, Model, Color, Serial Number: Octavio OSBORNE JAYLON SN: [id number] Color: Bronze Jalousies Installer Repair Warranty: 09/05/2023 Jalousies Installer Loss and Damage Warranty: 09/05/2023 [facility] Service Plan: NONE Battery Size: 312 Balling Head Tender/Slim Tube: 2/60 CROS Earmold/Dome/CShell/SlimTip: Oticon 8mm Open Dome Type of Wax Guard: Hear Clear Dispensed By: [facility] Date of Fittin06/15/2020 Follow-Up Summary: Edson reports that the new right embedded drying machine receiver earmold moves around in his ear as he talks and chews and causes him to get feedback throughout the day. Reports frequent need to push earmold back in. New impression taken and sent to Octavio for remake. Cerumen removal needed prior to taking impression, done without incidence, see note. Impression taken without incidence. Put the back up speaker that was stored in his chart on the right aid and ran feedback, had to further reduce gain overall quite a bit to deal with feedback. Recommendations: Recommendations: Patient will be contacted when materials have arrived. Diagnosis Code(s): Primary Diagnosis: H90.3 Bilateral Sensorineural Hearing Loss Signature: Provider: Caity Simpson, [facility]
== END 2024-12-17 10:44 | disposition home or self-care (01) ==
LOC: HO.HAP 10:43
PROVIDERS: Visit Provider Internal Medicine
DX: Z46.1 Encounter for fitting and adjustment of hearing aid (principal); H90.3 Sensorineural hearing loss, bilateral
CPT/HCPCS: 92700

== ENCOUNTER 2025-01-03 14:00 | Outpatient (REF) | payer SELFPAY ==
--- OUTSIDE RECORDS SUMMARY | 2025-01-03 14:17 | XMS_ITS | Data Portability ---
Author Organization [facility] Aleksandra Internal Medicine, Home Service Address [address] [place] [address] Assessment Encounter Date Assessment Date Assessment LastModified by Organization Details LastModified Time 01/08/2021 01/08/2021 [id number] [place] [id number] (STIPPLER) MDM MODERATE MUST MEET 2 OUT OF [...] COVERED Not available 01/08/2021 15:46:22 12/25/2021 12/25/2021 [id number] [place] [address] (STIPPLER) MDM MODERATE MUST MEET 2 OUT OF [...] None recorded. Referral general surgeon referral 2021 022 [email or web address] Tami Lewis MD, [address], [place], [address], 2 09:31:17 Procedures None recorded. Surgeries None recorded. Imaging None recorded. Medication Orders nabumetone 500 mg tablet 2023 024 [facility], [address] [place] [address], [address], 4 11:03:53 cyclobenzap rine 10 mg tablet 2022 024 [facility], [address] [place] [address], [address], 4 10:13:42 phentermine 15 mg capsule 2022 023 [facility], [address] [place] [address], [address], 4 08:40:01 amoxicillin 875 mg-potassiu m clavulanate 125 mg tablet 2021 022 [facility], [address] [place] [address], [address], 3 12:09:05 lisinopril 20 mg tablet 2021 022 [facility], [address] [place] [address], [address], 3 11:04:53 atorvastati n 40 mg tablet 2021 022 [facility], [address] [place] [address], [address], 2 11:19:47 lisinopril 20 mg tablet 2020 021 [id number], [address], [place], [id number], 15:51:55 atorvastati n 40 mg tablet 2020 021 [id number], [address], [place], [phone], 15:51:56 Patient TargetsNo targets recorded. Patient Instructions Encounter Date Encounter Id Patient Instructions Last Modified By Organization Details Last Modified Time 01/08/2021 [id number] Home Sleep Apnea Testing* [email or web address] Not available 01/30/2021 14:47:48 shoulder pain: care instructions Not available 01/08/2021 15:49:46 03/12/2024 [id number] sciatica: exercises [email or web address] Not available 03/12/2024 10:28:11 low back pain: exercises [email or web address] Not available 03/12/2024 10:28:50 Reason for Referral General Surgeon Referral for Umbilical hernia worsening periumbilical pain Referring Physician: Arnold Savage, Internal Medicine, Encounter Date: 12/25/2021 Results Created Date Observation Date Name Description Value Unit Range Abnormal Flag Note LastModifiedBy Organization Detail LastModifiedTime 05/30/20 21 05/20/2021 Home Sleep Apnea Testi ng* No observ ation record ed. [email or web address] [facility] [address], [address], 12/25/2021 16:02:59 Result Notes None recorded. Problems Name Problem SNOMED Code Status Onset Date Resolution Date Notes Provider Name and Address Organization Details Recorded Time Essential hypertens ion 81128730 Active 2017 Not Available [facility] 12:48:32 Hyperchol esterolem ia 26579582 Active 2017 Not Available [facility] 12:48:32 Sleep apnea 69695887 Active 2018 Not Available [facility] 12:48:32 Umbilical hernia 108352467 Active 2021 Arnold Savage, DO [address] [place], [address], [facility] 2 16:10:02 Acute otitis media 7752827 Active 2021 WILLY RINALDI [address] [place], [address], [facility] 2 11:07:39 Pain of bilateral hip joints 863796591065 91746 Active 2022 WILLY RINALDI [address] [place] [address], [address], [facility] 3 10:48:26 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 Active 2022 WILLY RINALDI [address] [place] [address], [address], [facility] 3 12:08:31 Strain of flexor muscle of right hip 402523327520 74659 Active 2022 Arnold Savage DO [address] [place] [address], [address], [facility] 3 16:48:25 Neck pain 16955022 Active 2022 WILLY RINALDI [address] [place] [address], [address], [facility] 3 08:24:42 Acute bronchiti s 23033714 Active 2023 WILLY RINALDI [address] [place] [address], [address], [facility] 4 10:30:00 Pain of left shoulder joint 444349744303 64464 Active 2023 WILLY RINALDI [address] [place] [address], [address], [facility] 4 10:24:40 Strain of left trapezius muscle 539247324213 68510 Active 2023 WILLY RINALDI [address] [place] [address], [address], [facility] 4 10:25:31 Lumbago with sciatica 547298885 Active 2023 WILLY RINALDI [address] [place], [address], [facility] Internal [facility] 4 10:27:28 Problem Notes None recorded. Procedures Surgical History Date Name Laterality Status Provider Name and Address Organization Details Recorded Time 08/25/19 02 procedure on ear completed Desiree Haro NP, S [address] [place] [address], [address], [facility] Internal [facility] 10/13/2018 14:22:06 08/25/19 00 procedure on elbow completed Desiree Haro NP, S [address] [place] [address], [address], [facility] Internal [facility] 10/13/2018 14:20:56 08/25/18 91 Knee Surgery completed Desiree Haro NP, S [address] [place] [address], [address], [facility] Internal [facility] 10/13/2018 14:20:11 Imaging Results Imaging Date Name Status LastModified by Organiz ation Details LastModified Time 05/20/2021 Home Sleep Apnea Testing* completed [email or web address] [facility] [address], [address], 12/25/2021 16:02:59 Procedure Notes None recorded. Medical Equipment None Reported. Allergies Allergen ID Allergen Name Allergen Category Reaction Reaction Severity Criticality Documentation Date Start Date Code Code System Note Provider Name and Address Organization Details Recorded Time 2244 Toradol medicatio n dizziness Not available Not available 05/01/2018 94583 [facility] 8 09:23:22 Medications Name Sig Start Date Stop Date Status Note LastModified by Organization Details LastModified Time cyclobenzapr ine 10 mg tablet Take 1 tablet 3 times a day by oral route as needed for 7 days. active Not Available Not Available No t Available atorvastatin 40 mg tablet TAKE ONE TABLET BY MOUTH ONCE DAILY. NEEDS APPT FOR FURTHER REFILLS 2024 active Not Available Not Available Not [...] tablet TAKE ONE TABLET BY MOUTH ONCE DAILY. NEEDS APPT FOR FURTHER REFILLS 2024 active Not Available Not Available Not [...] Updated DateTime 1 177.8 cm 33.7 kg/m2 243576. 21 g 64 /min 97 % 97 % 130 mm[Hg] 80 mm[Hg] Lissy Marin [facility] 1 15:30:28 Date Recorded Body height Body mass index (BMI) Body weight Heart rate Oxygen saturation Oxygen saturation in Arterial blood by Pulse oximetry Systolic blood pressure Diastolic blood pressure Provider Name and Address Organization Details Last Updated DateTime 2 177.8 cm 33.7 kg/m2 200253. 21 g 78 /min 98 % 98 % 132 mm[Hg] 84 mm[Hg] Arnold MarreroTracy Zepedasusanne, DO [address] [place], [address], [facility] Internal Medicine 2 15:54:41 Date Recorded Body height Oxygen saturation Oxygen saturation in Arterial blood by Pulse oximetry Heart rate Systolic blood pressure Diastolic blood pressure Provider Name and Address Organization Details Last Updated DateTime 2 177.8 cm 100 % 100 % 65 /min 170 mm[Hg] 72 mm[Hg] Nahomi Hussein [facility] Internal Medicine 2 10:59:34 Date Recorded Body weight Heart rate Oxygen saturation Oxygen saturation in Arterial blood by Pulse oximetry Systolic blood pressure Diastolic blood pressure Provider Name and Address Organization Details Last Updated DateTime 3 801270. 43 g 78 /min 98 % 98 % 155 mm[Hg] 83 mm[Hg] Julia Montgomery [facility] Internal Medicine 3 09:06:46 Date Recorded Body height Body mass index (BMI) Body weight Heart rate Oxygen saturation Oxygen saturation in Arterial blood by Pulse oximetry Systolic blood pressure Diastolic blood pressure Provider Name and Address Organization Details Last Updated DateTime 4 177.8 cm 31.3 kg/m2 29065.1 4 g 66 /min 98 % 98 % 136 mm[Hg] 82 mm[Hg] Evelio Andrade [facility] Internal Medicine 4 10:14:40 Social History Question Answer Notes LastModified by Organizat ion Details LastModified Time Tobacco Smoking Status Never Smoker Janie oh [facility] 05/01/2018 11:05:49 What Was The [...] virus, quadrivalent, preservative 1 completed Janie oh [facility] Internal [facility] 05/25/2021 08:21:12 COVID-19, mRNA, LNP-S, PF, 100 mcg/0.5mL dose or 50 mcg/0.25mL dose 1 completed Arnold Savage [address], [address], [facility] Internal [facility] 08/11/2021 14:04:41 Influenza, split virus, quadrivalent, preservative 9 completed Janie oh [facility] 10/13/2018 16:13:39 SARS-COV-2 (COVID-19) vaccine, UNSPECIFIED 1 completed Janie oh [facility] 01/02/2021 14:40:30 Past Encounters Encounter ID Performer Location Encounter Start Date Encounter Closed Date Diagnosis/Indication Diagnosis SNOMED-CT Code Diagnosis ICD10 Code Diagnosis Note [id number] Arnold Savage [address], [place] [address] 05/01/2018 10:58:44 05/01/2018 14:36:39 Dizziness 180266916 R42 On examina tion - pupils unequal 884002870 H57.02 [id number] Arnold Savage [address] [address] 05/22/2018 11:05:21 05/22/2018 14:48:17 Hypercholesterolemia 84257646 E78.00 Essential hypertension 43710488 I10 Diarrhea 14496707 R19.7 Hearing loss 42121510 H9 1.92 [id number] Arnold Savage [address] [place] [address] 10/13/2018 16:03:57 10/13/2018 16:39:53 Essential hypertension 80537615 I10 Sleep apnea 25117138 G47 .30 compliant 80 % time Hypercholesterolemia 136 30890 E78.00 Screening procedure 2012 5006 Z13.9 [id number] Arnold Savage [address], [place] [address] 01/03/2020 14:13:01 01/03/2020 14:55:30 Essential hypertension 86312275 I10 bp is stbale and tolerates all meds Hypercholesterolemia 136 59151 E78.00 will have him get lab as it hasnt in aq while\ Sleep apnea 51758850 G47 .30 MUst get new machine as his is >15 yrs old and is no longer viable to treat his CAROL [id number] Arnold Savage [facility] Internal Medicine [address] [facility], [place] [address] 01/08/2021 15:22:58 01/08/2021 16:29:27 Hypercholesterolemia 09169542 E78.00 will have him get lab as it hasnt in aq while\ Essential hypertension 46796236 I10 bp is stable and tolerates all meds Sleep apnea 86004226 G47 .30 MUst get new machine as his is >15 yrs old and is no longer viable to treat his CAROL we will order a new home sleep study [facility] [id number] M25.519 [id number] Arnold Savage [facility] Internal Medicine [address], [place] [address] 12/25/2021 15:16:28 12/26/2021 09:31:16 Active or passive immunization 237631219 Z23 will consider getting Tdap Umbilical hernia 0257721 07 K42.9 [id number] Arnold Savage [facility] Internal Medicine [address], [place] [address] 06/11/2022 10:55:32 06/11/2022 11:22:17 Acute otitis media 6367548 H65.01 will start on PO abx for the patient Hypercholesterolemia 136 60190 E78.2 will f/u with 90 day supply at new pharmacy Essential hypertension 28214225 I10 will f/u with 90 day supply at new pharmacy [id number] Arnold Savage [facility] Internal Medicine [address], [place] [address] 07/30/2023 08:59:58 07/30/2023 10:33:51 Spasmodic torticollis 17030727 G24.3 will start on 1.5 mg PRN for the msk spasmswith tramadol Body mass index 30+ - obesity 848018534 Z68.33 will trial a course of phentermin e for continued weight loss [id number] DO Aleksandra Kumar Internal Medicine [address],[place] [address] 03/12/2024 10:03:18 03/12/2024 12:09:16 Depression screening 460875637 Z13.31 negative Pain of le ft shoulder joint 4272858096 5874935 M25.512 stable Strain of left trapezius muscle 9300762749 1440750 S29.012A will start nabumetone 500 mg BID PRN Lumbago with sciatica 20 0801624 M54.41 will set up with other exercises for the patient Health Concerns Section Related Observation LastModified by Organization Detai ls LastModified Time None Recorded Concern Status LastModified by Organization Details LastModified Time None Recorded Advance Directives Directive None Recorded Payers Encounter Date Sequence Insurance Name Policy Number Policy Perdomo Covered Member ID Perdomo Member ID Guarantor Name 01/08/2021 1 [facility] [id number] Edson Bailey [id number] Edson Bailey 12/25/[address] [place] [address] [id number] Edson Bailey [id number] Edson Bailey 06/11/2022 1 [facility] Edson Bailey [id number] Edson Bailey 07/30/[address] [place] [address] [id number] Edson Bailey [id number] Edson Bailey 03/12/[address] [place] [address] [id number] Edson Bailey [id number] Edson Bailey Notes Date Note Type Note Provider Name a ms Address Organization Details Recorded Time text/html here for rechk and is doing ok and is much less stressed states that he is going to gym too states he is going up to 5 times a week eating better overall Arnold Savage DO [address] [facility], [place], [address], [facility] 01/08/2021 15:54:09 2 text/html here for rechk and is doing ok overall exvcept for a lump in his chadwick button present for about a yearstates it does hurt at times when pressing on itpain is sharp and hurts for over a day Arnold Savage DO [address] [place], [address], [facility] 12/25/2021 16:14:52 2 text/html c/o right ear pain the patient developed acute onset right sided ear painhas hearing aids currently purulent discharge, redness, bulging and swelling for the right ear canal and right ear drum will start on abx POhas hernia surgery on will start on today, stop tart after hernia surgery WILLY RINALDI [address] [place], [address], [facility] 06/11/2022 11:17:10 3 text/html [...] MSK relaxerwill send it instill needs to pick remover the tramadol for an increase of pain may need additional imaging and work up if it doesn't can't do MRIif imaging needed will do CT instead WILLY RINALDI [address] [place], [address], [facility] 07/30/2023 09:22:50 4 text/html [...] obvious weakness or neuro deficits WILLY RINALDI [address] [place] [address], [place], [address], [facility] 03/12/2024 10:31:25
--- NOTE | 2025-01-03 14:24 | MHC.AU.HA3 ---
Hearing Instrument Follow-Up- Binaural Date of Visit: 01/03/25 Right Ear: Alfred, Model, Color, Serial Number: Octavio Brown [address] JAYLON SN: [id number] Color: Bronze Retort Or Condenser Press Operator Repair Warranty: 10/28/2024 Retort Or Condenser Press Operator Loss and Damage Warranty: 09/05/2023 [facility] Service Plan: None Battery Size: 312 Human Resources Hr Generalist/Slim Tube: Absolute Power Human Resources Hr Generalist/Integrated earmold SN: [id number] Warranty: 10/29/2026 Earmold/Dome/CShell/SlimTip: Type of Wax Guard: HearClear Dispensed By: [facility] Date of Fittin06/15/2020 Left Ear: Alfred, Model, Color, Serial Number: Octavio OSBORNE JAYLON SN: [id number] Color: Bronze Retort Or Condenser Press Operator Repair Warranty: 09/05/2023 Retort Or Condenser Press Operator Loss and Damage Warranty: 09/05/2023 [facility] Service Plan: NONE Battery Size: 312 Human Resources Hr Generalist/Slim Tube: 2/60 CROS Earmold/Dome/CShell/SlimTip: Oticon 8mm Open Dome Type of Wax Guard: Hear Clear Dispensed By: [facility] Date of Fittin06/15/2020 Follow-Up Summary: Fit remake earmold right. Connected to reprogram hearing aid to previous session, prior to putting the temporary sales and service engineer/dome on at last visit. Ran feedback. Good subjective comfort and benefit reported. Mold not slipping out, not getting feedback in office. Return promptly with any fit issues. Recommendations: Recommendations: Return as needed, with concerns. Diagnosis Code(s): Primary Diagnosis: H90.6 Mixed Hearing Loss, Bilateral Signature: Provider: Caity Simpson, [facility]
== END 2025-01-03 14:01 | disposition home or self-care (01) ==
LOC: HO.HAP 14:00
PROVIDERS: Visit Provider Internal Medicine
DX: Z13.89 Encounter for screening for other disorder (principal)

== ENCOUNTER 2025-05-06 08:30 | Outpatient (REF) | payer SELFPAY ==
--- OUTSIDE RECORDS SUMMARY | 2025-05-06 09:01 | XMS_ITS | Encounter Summary ---
Author Organization [facility] Address [address] [facility] [address] [place] [address] Phone Care Team Providers Care Supervisor Incising Name Role Phone Arnold Savage DO Primary Care Provider [phone] Encounter Details Date Type Department Care Team (Late st Contact Info) Description 06/13/2022 Procedure Pass OR Admitting Dept - Virtual Department [address] [place] [address] Social History Tobacco Use Types Packs/Day Years Used Date Smoking Tobacco: Never Smokeless Tobacco: Never Sex and Gender Information Value Date Recorded Sex Assigned at Male 05/01/2018 12:56 PM EDT Legal Sex Male 9:44 PM EDT Gender Identity Male 05/01/2018 12:56 PM EDT Sexual Orientation Not on file documented as of this encounter Plan of Treatment Not on file documented as of this encounter Visit Diagnoses Not on filedocumented in this encounter Care Teams Supervisor Incising Relationship Specialty Start Date End Date Arnold Savage DO PCP - General Internal Medicine 05/01/18 documented as of this encounter Additional Source Comments The information contained in this document represents components of the legal health record. It is not the complete legal health record.[facility]
--- OUTSIDE RECORDS SUMMARY | 2025-05-06 09:01 | XMS_ITS | Encounter Summary ---
Author Organization [facility] Address [address] [address] Phone Care Team Providers Care Transportation Broker Name Role Phone Arnold Savage DO Primary Care Provider [phone] Encounter Details Date Type Department Care Team (Late st Contact Info) Description 01/16/2025 Transcribe Orders Virtual Department [address] [place] [address] Arnold Savage DO [address] [facility] [place] [address] [email or web address] Strain of muscle(s) and tendon(s) of the rotator cuff of right shoulder, initial encounter (Primary Dx) Social History Tobacco Use Types Packs/Day Years Used Date Smoking Tobacco: Never Smokeless Tobacco: Never Education Answer Date Recorded Are you interested in more education? Not on kristopher e 12/20/2022 Are you concerned about learning? Not on file 12/20/2022 No 12/20/2022 No 12/20/2022 Digital Access Answer Date Recorded No 01/18/2023 No 01/18/2023 No 01/18/2023 Reliable internet access at home? Not on file 01/18/2023 Device with a working camera? Not on file Sex and Gender Information Value Date Recorded Sex Assigned at Male 05/01/2018 12:56 PM EDT Legal Sex Male 9:44 PM EDT Gender Identity Male 05/01/2018 12:56 PM EDT Sexual Orientation Not on file documented as of this encounter Plan of Treatment Scheduled Orders Name Type Priority Associated Diagnoses Orde r Schedule XR Shoulder (Right) Imaging Routine Strain of muscle(s) and tendon(s) of the rotator cuff of right shoulder, initial encounter Expected: 01/16/2025, Expires: 01/16/2026 documented as of this encounter Visit Diagnoses Diagnosis Strain of muscle(s) and tendon(s) of the rotator cuff of right shoulder, initial encounter- Primary documented in this encounter Care Teams Transportation Broker Relationship Specialty Start Date End Date Arnold Savage DO [email or web address] PCP - General Internal Medicine 05/01/18 documented as of this encounter Additional Source Comments The information contained in this document represents components of the legal health record. It is not the complete legal health record.[facility]
--- OUTSIDE RECORDS SUMMARY | 2025-05-06 09:01 | XMS_ITS | Encounter Summary ---
Author Organization [facility] Address [address] [facility] [address] [place] [address] Phone Care Team Providers Care Loss Control Representative Name Role Phone Arnold Savage DO Primary Care Provider [phone] Encounter Details Date Type Department Care Team (Late st Contact Info) Description 05/01/2018 Procedure Pass [facility], Ct Scan - [address] [address] Social History Tobacco Use Types Packs/Day Years Used Date Smoking Tobacco: Unknown Sex and Gender Information Value Date Recorded Sex Assigned at Male 05/01/2018 12:56 PM EDT Legal Sex Male 9:44 PM EDT Gender Identity Male 05/01/2018 12:56 PM EDT Sexual Orientation Not on file documented as of this encounter Plan of Treatment Not on file documented as of this encounter Visit Diagnoses Not on filedocumented in this encounter Care Teams Loss Control Representative Relationship Specialty Start Date End Date Arnold Savage DO [email or web address] PCP - General Internal Medicine 05/01/18 documented as of this encounter Additional Source Comments The information contained in this document represents components of the legal health record. It is not the complete legal health record.[facility]
--- OUTSIDE RECORDS SUMMARY | 2025-05-06 09:01 | XMS_ITS | Clinical Summary ---
Author Organization [facility] Address [address] [address] Phone Care Team Providers Care Medical Record Administrator Name Role Phone Arnold Savage DO Primary Care Provider [phone] Allergies Active Allergy Reactions Criticality Noted Date Comments Ketorolac Unknown Low 05/01/2018 Medications atorvastatin (LIPITOR) 40 MG tablet Take 40 mg by mouth daily. 12/25/2021 Active lisinopril (PRINIVIL,ZESTR IL) 20 MG tablet Take 20 mg by mouth daily. 12/25/2021 Active acetaminophen (TYLENOL) 325 mg tablet Take 1-2 tablets (325-650 mg total) by mouth every 6 (six) hours as needed (mild - moderate pain). 06/13/2022 Active Active Problems Problem Noted Date Diagnosed Date S/P umbilical hernia repair, follow-up exam 11/2021 Immunizations Immunization Administration Dates Next Due COVID-19 (Pre-06/16) Eneida Vaccine, [id number], P F 12/04/2020 COVID-19 (Pre-06/16) Moderna Vaccine, mRNA, PF 1 10/11/2020 COVID-19, Unspecified Formulation 12/04/2020 Social History Tobacco Use Types Packs/Day Years [...] PM EDT Sexual Orientation Not on file Last Filed Vital Signs Vital Sign Reading Time Taken Comments Blood Pressure 126/84 06/28/2022 3:50 PM EDT Pulse 67 06/28/2022 3:50 PM EDT Temperature 36.6 C (97.8 F) 06/28/2022 3:50 PM EDT Respiratory Rate 16 06/13/2022 1:50 PM EDT Oxygen Saturation 97% 06/28/2022 3:50 PM EDT Inhaled Oxygen Concentration - - Weight 99.8 kg (220 lb) 06/13/2022 10:40 AM EDT Height 177.8 cm (5' 10 ) 06/13/2022 10:40 AM EDT Body Mass Index 31.57 06/13/2022 10:40 AM EDT Plan of Treatment Health Maintenance Due Date Last Done Comments Adult Td,Tdap Booster 1963 LIPID PANEL 1963 DEPRESSION SCREENING 1975 HEPATITIS C SCREENING 1981 HIV ONE-TIME SCREENING (18-65 YEARS) 1981 COLOGUARD 2008 COLONOSCOPY 2008 COLORECTAL CANCER SCREENING 2008 FIT TEST 2008 FOBT 2008 SIGMOIDOSCOPY 2008 VIRTUAL COLONOSCOPY 2008 PNEUMOCOCCAL VACCINES (50+ years) (1 of 1 - PCV) 2013 ZOSTER VACCINES (1 of 2) 2013 CREATININE LEVEL 05/01/2019 05/01/2018 POTASSIUM LEVEL 05/01/2019 05/01/2018 SCREENING FOR DIABETES 05/01/2021 05/01/2018 INFLUENZA VACCINE (#1) 2025 1, 09/16/2018, 04/04/2017, Additional history exists COVID-19 VACCINE (2024- season) 2025 08/10/2021, 12/04/2020, 12/04/2020 RSV VACCINE (1 - 1-dose 75+ series) 2038 SMOKING STATUS SCREENING (Once After 26 Yrs) Completed 06/28/2022 HEPATITIS A VACCINES Aged Out No long er eligible based on patient's age to complete this topic HIB VACCINES Aged Out No longer eligi ble based on patient's age to complete this topic MENINGOCOCCAL VACCINES (ACWY) Aged Out No longer eligible based on patient's age to complete this topic MENINGOCOCCAL VACCINES (B) Aged Out N o longer eligible based on patient's age to complete this topic Medical Devices Implanted Type Area [employer]orer [employer] Device Identifier Shelf Expiration Date Model / Serial / Lot Mesh Surgical 15cm 8 Hernia Prolene Polypropylene Nonabsorbable Repair Bx/[id number] - [id number] Implanted:Qty: 1 on 06/13/2022 by Tami Lewis MD at [facility] STANDARD N/A: Umbilical JN[employer] / DIVISION OF J 03/24/2026 [id number] / / [id number] Procedures Procedure Name Priority Date/Time Associated Diagnosis Comments BASIC METABOLIC PANEL STAT 05/01/2018 1:12 PM EDT from Last 3 Months or Most Recently Relevant to Health Maintenance Results * Basic metabolic panel (05/01/2018 1:12 PM EDT) SODIUM 140 133 - 146 mmol/L [facility] CHLORIDE 101 96 - 108 mmol/L [facility] POTASSIUM 4.5 3.3 - 5.1 mmol/L [facility] CO2 29 21 - 35 mmol/L [facility] BUN 10 6 - 19 mg/dL [facility] CREATININE 0.80 0.5 - 1.5 mg/dL [facility] GLUCOSE 88 70 - 99 mg/dL [facility] CALCIUM 9.3 8.4 - 10.3 mg/dL [facility] EGFR 101 >59 mL/min/1.7 3m2 [facility] Comment:If patient is black, multiply result by 1.159. Estimated glomerular filtration rate calculated using the CKD-EPI equation. ANION GAP 15 10 - 20 mmol/L [facility] Blood 05/01/2018 1:12 PM EDT 05/01/2018 1:19 PM EDT us Baldomero Ivy PA-C LAB BLOOD ORDERABLES Final Re sult [facility] [address] [place] [address] from Last 3 Months or Most Recently Relevant to Health Maintenance Insurance [facility] POS [facility] POS [facility] POS [facility] POS [facility] POS [facility] POS [facility] POS [facility] POS [facility] POS Advance Directives For more information, please contact: [phone] (9AM - 5PM [facility], Friday-Friday) * Full Code (Latest Code Status on File) Date Activated Date Inactivated Comments 06/13/2022 10:18 AM Question Answer Comments Code Status Confirmed With: Patient Care Teams Medical Record Administrator Relationship Specialty Start Date End Date Arnold Savage DO [email or web address] PCP - General Internal Medicine 05/01/18 Additional Source Comments The information contained in this document represents components of the legal health record. It is not the complete legal health record.[facility]
--- NOTE | 2025-05-06 09:32 | MHC.AU.HA3 ---
Hearing Instrument Follow-Up- Binaural Date of Visit: 05/06/25 Right Ear: Alfred, Model, Color, Serial Number: Octavio Catalan JAYLON SN: [id number] Color: Bronze Montessori Lead Teacher Repair Warranty: 10/28/2024 Montessori Lead Teacher Loss and Damage Warranty: 09/05/2023 [facility] Service Plan: None Battery Size: 312 Tape Cutting Machine Operator/Slim Tube: Absolute Power Tape Cutting Machine Operator/Integrated earmold SN: [id number] Warranty: 10/29/2026 Earmold/Dome/CShell/SlimTip: Type of Wax Guard: HearClear Dispensed By: [facility] Date of Fittin06/15/2020 Left Ear: Alfred, Model, Color, Serial Number: Octavio OSBORNE JAYLON SN: [id number] Color: Bronze Montessori Lead Teacher Repair Warranty: 09/05/2023 Montessori Lead Teacher Loss and Damage Warranty: 09/05/2023 [facility] Service Plan: NONE Battery Size: 312 Tape Cutting Machine Operator/Slim Tube: 2/60 CROS Earmold/Dome/CShell/SlimTip: Oticon 8mm Open Dome Type of Wax Guard: Hear Clear Dispensed By: [facility] Date of Fittin06/15/2020 Follow-Up Summary: Edson arrives with his left CROS tube missing its tip and dome. He notes, he does not think it is in his ear. Otoscopy reveals the tube tip and dome in left ear canal. Removed with use of loupes and forceps without incidence. Otoscopy clear Au. Cleaned hearing aid and CROS. Cleaned right mold and replaced wax guard. Replaced CROS tube and dome. Listening check positive. Edson notes improvement. Recommendations: Recommendations: Hearing instrument follow-up or maintenance as needed. Diagnosis Code(s): Primary Diagnosis: H90.6 Mixed Hearing Loss, Bilateral Secondary Diagnosis: H69.93 Unspecified Eustachian Tube Dysfunction, Bilateral Signature: Provider: Caity Simpson, [facility]
== END 2025-05-06 08:31 | disposition home or self-care (01) ==
LOC: HO.HAP 08:30
PROVIDERS: Visit Provider Internal Medicine
DX: Z46.1 Encounter for fitting and adjustment of hearing aid (principal); H90.6 Mixed conductive and sensorineural hearing loss, bilateral
CPT/HCPCS: 92593